=== PATIENT | male | born 1995 | race Caucasian/White ===

== ENCOUNTER 2016-06-03 22:50 | Emergency (ER) | payer OTHER ==
[2016-06-03 23:58] VITALS: BP 149/85
== END 2016-06-03 23:58 | disposition home or self-care (01) ==
LOC: ED 22:50
DX: S93.402A Sprain of unspecified ligament of left ankle, initial encounter (principal); W17.89XA Other fall from one level to another, initial encounter; Y93.39 Activity, other involving climbing, rappelling and jumping off; Y92.89 Other specified places as the place of occurrence of the external cause; Y99.8 Other external cause status